=== PATIENT | male | born 1945 | race Caucasian/White ===

== ENCOUNTER 2017-08-31 13:00 | Outpatient (RCR) | payer MEDICARE, BC, SELFPAY ==
--- NOTE | 2017-08-10 13:39 | HP.PTEVAL_ITS ---
Patient's Visit Information ENOC CAMPBELL is a 71 year old M referred to Physical Therapy by Seth CUELLO with a diagnosis of BACK PAIN, SCIATICA. Date of Evaluation: 08/10/17 Physical Therapist: Christina Bonilla Visit Plan Frequency: 2-3x /Week Duration: 4-6 Weeks Plan: AQUATIC THERAPY. POSTURE CORRECTION/STRENGTHENING, INSTRUCTION IN APPROPRIATE BODY MECHANICS AND ACTIVITY MODIFICATIONS. DLS STARTING WITH A NEUTRAL SPINE PROGRESSING ROM TOLERATED. NICOLA LE ROM, STRETCHING AND STRENGTHENING. HEP INSTRUCTION. 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 HASN'T BEEN ABLE TO WORK FOR PAST 7 WEEKS DUE TO THIS. Disability: NO. Present symptoms: LEFT LOW BACK, LEFT HIP, L KNEE AND WHITE PAIN. INTERMITTENT LLE NUMBNESS AND TINGLING. Present since: SOMETIME IN JUNE. Pain Scale: WORST 10/10, LEAST 0/10. Currently: 2/10. Commenced as a result of: NO APPARENT REASON OTHER THAN ON HANDS AND KNEES ON THE FLOOR WITH 3 YEAR OLD GRANDSON ON HIS BACK. Symptoms at onset: LOW BACK. Worse: MEDICINE, STANDING , SOMETIMES WALKING, LYING DOWN IN BED, WORK, GETTING IN/OUT OF CAR, BENDING, REACHING, GETTING THINGS OUT OF THE HEART DOCTOR, LIFTING. Better: HEATING PAD, ICE, HOT SHOWER, SITTING, TENS UNIT. Disturbed sleep: YES. Previous history/ Previous treatment: YEARS AGO SOME LOW BACK ADJUSTMENTS BY CHIROPRACTOR WHEN IN FOR HIS NECK BUT DENIES ANY OTHER SIGNIFICANT HISTORY OF LOW BACK PROBLEMS. NO LOW BACK SURGERY. NO KIARA'S. Coughing/sneezing/straining: NEGATIVE. Gait: INDEP GAIT AT TIMES BUT OTHER TIMES IT IS SO BAD THAT HE HAS TO USE A W/C. HAS USED A CANE TOO. ALSO USES WALKER AT TIME. Difficulty initiating urinatin : NO. Accidents: NO. Unexplained weight loss: NO. Imaging: [facility] LEFT HIP, PELVIC AND KNEE X-RAYS SHOWING DEGENERATIVE CHANGES. CHIROPRACTIC LUMBAR X- RAYS - PATIENT REPORTS CHIROPRACTOR SAID HE HAS ARTHRITIS AND BULGING DISC. PMH : Recent major surgery: OTHER: 5 WEEKS OF CHIROPRACTIC VISITS AND PATIENT DOESN'T THINK HE IS GETTING ANYWHERE. ONE VISIT AT AT [facility] AND IT DIDN'T HELP AND HE WAS SKEPTICAL ABOUT WHAT THEY HAD PLANNED HELPING SO HE DIDN' T GO BACK. TWO VISITS WITH DR. MARIO. ALSO WENT TO ED. PATIENT REPORTS HE WAS GOING TO STAY WITH THE CHIROPRACTOR BUT AFTER HAVING A BAD EXPERIENCE MONDAY (YESTERDAY) THE PAIN GOT BAD AGAIN BUT NOT BAD MONDAY. HE DECIDED RECENTLY TO TRY PT AGAIN. ALSO TRIED SOME INJECTIONS OF SOME SORT AT [facility] FOR 2 WEEKS BUT DIDN'T HELP. - Objective Sitting Posture: POOR. Standing Posture: POOR. Lordosis: REDUCED. Lateral shift: NO. Relevant shift: N/A. Active Correction of posture: NE. Other Observations: INDEP SLOW GAIT INTO PT WITHOUT AD. STATES TODAY IS A PRETTY GOOD DAY SO FAR. Motor deficit: NO EXCEPT HIPS 4/5 AND NO INCREASED PAIN WITH TESTING. Sensory deficit: NO. ROM deficit: TIGHT NICOLA HIP FLEXORS, HS'S AND GASTROC SOLEUS COMPLEX'S. Reflexes: 2/2 NICOLA LE'S. Dural Signs: NEGATIVE NICOLA LE'S. Lumbar mvmt loss: flex - NIL *. ext - INEZ *. R SG - INEZ. L SG - INEZ. FLEX AND EXT ROM TESTING PROVOKE LLE TINGLING AND PAIN. Core strength: POOR. Palpation: NO TENDERNESS. - Goals Goal 1:: DECREASE C/O BACK AND LLE SX'S Goal Time Frame: 4-6 Weeks Goal 2:: IMPROVE PERSONAL CARE, LIFTING, WALKING, SITTING, STANDING, SLEEP, SOCIAL LIFE, TRAVEL AND EMPLOYMENT/HOMEMAKING FUNCTION Goal Time Frame: 4-6 Weeks Goal 3:: INSTRUCT IN PROPHYLAXIS Goal Time Frame: 4-6 Weeks - Rehabilitation Potential Rehabilitation Potential: Fair - Anticipated Interventions Patient/Client Instruction: Educate patient on: Condition, Plan of Care, Risk Factors, Benefits of Fitness Program For the Purpose of:: To improve self management Therapeutic Exercise to Include: Strength training, Body mechanics, Postural training, Flexibilty training, Gait and locomotor training, Dynamic Lumbar Stabilization For the Purpose of:: To improve ability to perform ADL's, To increase tolerance to activity/condition/position, To improve ability of physical actions for home/ community/work/leisure, To improve gait and locomotor functions Thank you for the opportunity to evaluate your patient. For Medicare and Medicare HMO plans, please review the plan of care and approve it. It will need to be FAXED BACK to us at [phone] for Medicare purposes. Please let me know if there are questions or concerns regarding this plan of care. Physician Signature: Date:
--- NOTE | 2017-08-10 13:42 | HP.PTEVAL_ITS ---
Patient's Visit Information ENOC CAMPBELL is a 71 year old M referred to Physical Therapy by Seth CUELLO with a diagnosis of BACK PAIN, SCIATICA. Date of Evaluation: 08/10/17 Physical Therapist: Christina Bonilla Visit Plan Frequency: 2-3x /Week Duration: 4-6 Weeks Plan: AQUATIC THERAPY. POSTURE CORRECTION/STRENGTHENING, INSTRUCTION IN APPROPRIATE BODY MECHANICS AND ACTIVITY MODIFICATIONS. DLS STARTING WITH A NEUTRAL SPINE PROGRESSING ROM TOLERATED. NICOLA LE ROM, STRETCHING AND STRENGTHENING. HEP INSTRUCTION. - Subjective Subjective: Work/Leisure: RETIRED SINCE 1999 BUT [employer] NOW ([employer]PL[employer] WEL[employer]). HASN'T BEEN ABLE TO WORK FOR PAST 7 WEEKS DUE TO THIS. Disability: NO. Present symptoms: LEFT LOW BACK, LEFT HIP, L KNEE AND WHITE PAIN. INTERMITTENT LLE NUMBNESS AND TINGLING. Present since: SOMETIME IN JUNE. Pain Scale: WORST 10/10, LEAST 0/10. Currently: 2/10. Commenced as a result of: NO APPARENT REASON OTHER THAN ON HANDS AND KNEES ON THE FLOOR WITH 3 YEAR OLD GRANDSON ON HIS BACK. Symptoms at onset: LOW BACK. Worse: MEDICINE, STANDING , SOMETIMES WALKING, LYING DOWN IN BED, WORK, GETTING IN/OUT OF CAR, BENDING, REACHING, GETTING THINGS OUT OF THE SKULL GRINDER, LIFTING. Better: HEATING PAD, ICE, HOT SHOWER, SITTING, TENS UNIT. Disturbed sleep: YES. Previous history/ Previous treatment: YEARS AGO SOME LOW BACK ADJUSTMENTS BY CHIROPRACTOR WHEN IN FOR HIS NECK BUT DENIES ANY OTHER SIGNIFICANT HISTORY OF LOW BACK PROBLEMS. NO LOW BACK SURGERY. NO KIARA'S. Coughing/sneezing/straining: NEGATIVE. Gait: INDEP GAIT AT TIMES BUT OTHER TIMES IT IS SO BAD THAT HE HAS TO USE A W/C. HAS USED A CANE TOO. ALSO USES WALKER AT TIME. Difficulty initiating urinatin : NO. Accidents: NO. Unexplained weight loss: NO. Imaging: [facility] LEFT HIP, PELVIC AND KNEE X-RAYS SHOWING DEGENERATIVE CHANGES. CHIROPRACTIC LUMBAR X- RAYS - PATIENT REPORTS CHIROPRACTOR SAID HE HAS ARTHRITIS AND BULGING DISC. PMH : Recent major surgery: OTHER: 5 WEEKS OF CHIROPRACTIC VISITS AND PATIENT DOESN'T THINK HE IS GETTING ANYWHERE. ONE VISIT AT AT [facility] AND IT DIDN'T HELP AND HE WAS SKEPTICAL ABOUT WHAT THEY HAD PLANNED HELPING SO HE DIDN' T GO BACK. TWO VISITS WITH DR. MARIO. ALSO WENT TO ED. PATIENT REPORTS HE WAS GOING TO STAY WITH THE CHIROPRACTOR BUT AFTER HAVING A BAD EXPERIENCE MONDAY (YESTERDAY) THE PAIN GOT BAD AGAIN BUT NOT BAD MONDAY. HE DECIDED RECENTLY TO TRY PT AGAIN. ALSO TRIED SOME INJECTIONS OF SOME SORT AT [facility] FOR 2 WEEKS BUT DIDN'T HELP. - Objective Sitting Posture: POOR. Standing Posture: POOR. Lordosis: REDUCED. Lateral shift: NO. Relevant shift: N/A. Active Correction of posture: NE. Other Observations: INDEP SLOW GAIT INTO PT WITHOUT AD. STATES TODAY IS A PRETTY GOOD DAY SO FAR. Motor deficit: NO EXCEPT HIPS 4/5 AND NO INCREASED PAIN WITH TESTING. Sensory deficit: NO. ROM deficit: TIGHT NICOLA HIP FLEXORS, HS'S AND GASTROC SOLEUS COMPLEX'S. Reflexes: 2/2 NICOLA LE'S. Dural Signs: NEGATIVE NICOLA LE'S. Lumbar mvmt loss: flex - NIL *. ext - INEZ *. R SG - INEZ. L SG - INEZ. FLEX AND EXT ROM TESTING PROVOKE LLE TINGLING AND PAIN. Core strength: POOR. Palpation: NO TENDERNESS. - Goals Goal 1:: DECREASE C/O BACK AND LLE SX'S Goal Time Frame: 4-6 Weeks Goal 2:: IMPROVE PERSONAL CARE, LIFTING, WALKING, SITTING, STANDING, SLEEP, SOCIAL LIFE, TRAVEL AND EMPLOYMENT/HOMEMAKING FUNCTION Goal Time Frame: 4-6 Weeks Goal 3:: INSTRUCT IN PROPHYLAXIS Goal Time Frame: 4-6 Weeks - Rehabilitation Potential Rehabilitation Potential: Fair - Anticipated Interventions Patient/Client Instruction: Educate patient on: Condition, Plan of Care, Risk Factors, Benefits of Fitness Program For the Purpose of:: To improve self management Therapeutic Exercise to Include: Strength training, Body mechanics, Postural training, Flexibilty training, Gait and locomotor training, Dynamic Lumbar Stabilization For the Purpose of:: To improve ability to perform ADL's, To increase tolerance to activity/condition/position, To improve ability of physical actions for home/ community/work/leisure, To improve gait and locomotor functions Thank you for the opportunity to evaluate your patient. For Medicare and Medicare HMO plans, please review the plan of care and approve it. It will need to be FAXED BACK to us at [phone] for Medicare purposes. Please let me know if there are questions or concerns regarding this plan of care. Physician Signature: Date:
--- NOTE | 2017-08-31 13:57 | HP.PTDCSUM_ITS ---
HP - PT D/C Summary It has been my pleasure to treat ENOC CAMPBELL under orders from Seth Mario, for the diagnosis of BACK PAIN, SCIATICA for a total of 10 visit(s). Discharge Date: Please see the following information for a summary of their discharge status. - Subjective Subjective: PATIENT REPORTS HE GETS TEMPORARY RELIEF ONLY DURING AND AFTER AQUATIC THERAPY. OVER-ALL, HE REPORTS HE IS NO BETTER. CURRENTLY, LEFT LOW BACK , LEFT HIP, L KNEE AND WHITE PAIN. INTERMITTENT LLE NUMBNESS AND TINGLING. Pain Scale: WORST 10/10, LEAST 0/10. Currently: 0/10. PATIENT REPORTS DR. MARIO GAVE HIM THE CHOICE OF GOING TO THE CHIROPRACTOR, PT, MRI OR SURGEON. STATES HE CAN NOT TOLERATE AN MRI. STATES HE DOESN'T KNOW WHAT TYPE OF SURGEON DR. MARIO WAS REFERRING TO. PATIENT TRIES TO CLARIFY THAT HE FEELS GOOD DURING AND RIGHT AFTER AQUATIC THERAPY BUT THAT NIGHT HE SEEMS TO BE WORSE. HE RE-STATES THAT OVER-ALL HE THINKS HE IS A LITTLE BETTER AND HE REALLY DOESN'T KNOW IF WATER PT IS HELPING OR NOT. HE STILL CAN'T STAND TO DO HAIR AND THAT IS WHAT HAS HIM MOST CONCERNED. - Pain LBP Pain Intensity (Out of 10): 0 LLE Pain Intensity (Out of 10): 2 - Objective Objective/Function: GOALS NOT BEING MET. UPON EXAM: Lumbar mvmt loss: flex - NIL. ext - INEZ *. R SG - INEZ. L SG - INEZ. EXT ROM TESTING PROVOKE LLE TINGLING AND PAIN. Core strength: POOR. Palpation: NO TENDERNESS WITH PALPATION OF BACK, LEFT HIP OR LEFT LEG. - Goals Goal 1:: DECREASE C/O BACK AND LLE SX'S Goal Progress: Not Progressing Goal 2:: IMPROVE PERSONAL CARE, LIFTING, WALKING, SITTING, STANDING, SLEEP, SOCIAL LIFE, TRAVEL AND EMPLOYMENT/HOMEMAKING FUNCTION Goal Progress: Not Progressing Goal 3:: INSTRUCT IN PROPHYLAXIS Goal Progress: Not Progressing - Plan Plan: PATIENT IS NO WORSE SINCE STARTING THIS EPISODE OF CARE WITH PT BUT NOT SIGNIFICANTLY BETTER. REFERRED BACK TO DR. MARIO DUE TO LACK OF PROGRESS. D/C. PATIENT STATES HE IS GOING TO A HIP AND KNEE SPECIALIST AT [facility] TOMORROW UPON HIS OWN ACCORD. RECOMMEND LUMBAR TESTING AND CONSULT. - D/C Information If there are questions or concerns regarding this patient's physical therapy, please feel free to call me at [phone]. Thank you for the referral of this patient. Sincerely, Christina Street
== END 2017-08-31 19:00 | disposition home or self-care (01) ==
LOC: PT 13:00
PROVIDERS: Family Provider Family Medicine; PCP Family Medicine; Visit Provider Family Medicine
DX: M54.32 Sciatica, left side (principal)
CPT/HCPCS: 97113; 97162; 97530

== ENCOUNTER 2017-09-07 10:04 | Observation (INO) | payer MEDICARE, BC, SELFPAY ==
[2017-09-07] VITALS (9 sets, daily range): BP systolic 122–160; BP diastolic 67–78; PULSE 51–87; RESP 16–19; TEMP 36.4–36.6; O2SAT 95–98; BMI 38.2; BMI 26.7; BMI 26.8
--- NOTE | 2017-09-07 10:24 | RAD_ITS ---
STUDY: X-RAY CHEST REASON FOR EXAM: Male, 71 years old. Left lower extremity and abdominal pain. TECHNIQUE: Single AP portable view of the chest. COMPARISON: Comparison is made with prior study dated February 21, 2016. FINDINGS: Mild elevation of the right hemidiaphragm. Scattered calcified granulomas. There is no demonstrated pleural abnormality. There is mild cardiac enlargement. Normal mediastinum and perlita. Normal visualized pulmonary arteries. There is atherosclerotic tortuosity of the aortic arch and descending thoracic aorta. There are diffuse degenerative changes of the visualized thoracic spine. Normal visualized ribs, clavicles, and shoulders. There is no demonstrated abnormality of the visualized soft tissue structures of the upper abdomen. RAD/Chest 1 View (Portable) IMPRESSION: Mild cardiomegaly. The lungs are clear. Electronically Signed: Asaf Finney MD at 10:54 EST Tel [phone], Service support ,
--- NOTE | 2017-09-07 10:24 | EKG12_ITS ---
Test Reason : Blood Pressure : / mmHG Vent. Rate : 050 BPM Atrial Rate : 050 BPM P-R Int : 134 ms QRS Dur : 096 ms QT Int : 416 ms P-R-T Axes : 005 -18 -10 degrees QTc Int : 379 ms Sinus bradycardia Nonspecific T wave abnormality Abnormal ECG Confirmed by JAVI MUNIZ ([id number]), commercial production editor VIANCA HARRELL ([id number] on 09/12/2017 1:47:02 PM Referred By: EDVIN Confirmed By:JAVI MUNIZ
--- NOTE | 2017-09-07 10:24 | CT_ITS ---
STUDY: CT ABDOMEN AND PELVIS WITHOUT CONTRAST REASON FOR EXAM: Male, 71 years old. Severe abdomen pain earlier today, resolved now. Prior cholecystectomy.. RADIATION DOSAGE (If Supplied By Facility): CTDIvol = ( 21.88 ) mGy, DLP = ( 1191.77 ) mGycm TECHNIQUE: Transaxial images were obtained from the dome of the diaphragm to the symphysis pubis without oral contrast, and without intravenous contrast. Sagittal and coronal images were reconstructed. Individualized dose optimization techniques were used for this CT. COMPARISON: None. FINDINGS: The visualized lung bases are unremarkable. The visualized portions of the heart are within normal limits. Normal liver. There are surgical clips in the gallbladder fossa consistent with a prior cholecystectomy. Normal spleen. Normal pancreas. Normal bilateral adrenal glands. Normal right kidney. Normal left kidney. Normal visualized stomach. Normal small intestine. There are multiple colonic diverticula consistent with diverticulosis. The appendix is visualized and appears normal. There is diffuse atherosclerotic calcification of the abdominal aorta, without a demonstrated aneurysm. Normal inferior vena cava. Normal retroperitoneum. Normal urinary bladder. Normal abdominal wall. There are diffuse degenerative changes of the visualized lumbar spine. CT/Abdomen/Pelvis without Cont IMPRESSION: No acute intra-abdominal or intrapelvic abnormality. Diverticulosis. Moderate aortoiliac atherosclerotic. Electronically Signed: Saqib Orozco MD at 11:29 EST Tel , Service support ,
[2017-09-07] MEDS: 0.9% Normal Saline 1,000 ML 150 ML IV (10:46)
[2017-09-07 11:01] LABS: Absolute Lymphocyte Count 1.82 X10^3/ul (0.83-4.51); Absolute Neutrophil Count 3.6 X10^3/uL (2.0-7.7); Basophil# 0.04 X10^3/uL; Basophil% 0.6 % (0-1); Eosinophil# 0.56 X10^3/uL; Eosinophils% 8.4 % (0-5); Hemoglobin 13.9 g/dl (13.0-16.5); Lymphocyte # 1.82 X10^3/ul (4.0); Lymphocyte % 27.3 % (19-41); Mean Corp Hgb Conc 33.9 g/gl (32-36); Mean Corpuscular Hgb 31.4 pg (27.0-32.0); Mean Corpuscular Volume 92.6 fL (80-94); Mean Platelet Vol. 9.7 fl (6.2-12.0); Monocyte# 0.58 X10^3/uL; Monocyte% 8.7 % (0-10); Neutrophil # 3.61 X10^3/uL (2.7-7.7); Neutrophil % 54.1 % (47-70); Platelet Count 167 K/mm3 (150-450); RBC Distribution Width CV 12.4 % (11.6-14.6); RBC Distribution Width SD 41.2 fl (35.1-43.9); Red Blood Count 4.43 M/mm3 (4.6-6.2); White Blood Count 6.7 K/mm3 (4.4-11.0)
[2017-09-07 11:17] LABS: Anion Gap 6 (5-15); BUN 18 mg/dL (7-18); BUN/Creat Ratio 17.3 RATIO (10-20); Calcium,Total 8.5 mg/dL (8.5-10.1); Chloride 102 mmol/L (98-107); Creatinine, Serum 1.04 mg/dL (0.70-1.30); EST Glomerular Filtration Rate 75 mL/min (>60); Est Glom Filt Rate - Afr Amer 91 mL/min (>60); Estimated Creatinine Clearance 63.94 ml/min; Glucose 170 mg/dL (74-106); Lipase 215 U/L (73-393); Potassium 3.8 mmol/L (3.5-5.1); Sodium Level 137 mmol/L (136-145)
[2017-09-07 11:19] LABS: Bacteria 0 SEEN /hpf (None Seen); Mucous, Urine 0 SEEN /hpf (<or=2+); Squamous Epithelial Cells - UA 0 SEEN /hpf (0-5); White Blood Cells 0 SEEN /hpf (0-5)
[2017-09-07 11:24] LABS: Color, Urine Yellow (Yellow); Glucose, Dipstick Normal (Normal); Ketone-Dipstick Negative (Negative); Leukocyte Esterase-Dipstick Negative /ul (Negative); Nitrite-Dipstick Negative (Negative); Occult Blood-Urine Negative /ul (Negative); Protein-Dipstick Negative (Negative); Urine Bilirubin Dipstick Negative (Negative); Urine Clarity Clear (Clear); Urine Urobilinogen Normal (Normal)
[2017-09-07 11:34] LABS: Red Blood Cells-Urine 0-5 SEEN /hpf (0-5)
--- NOTE | 2017-09-07 11:51 | ED.DCSUM_ITS ---
- ER Visit Summary Date of Service: 09/07/17 Chief Complaint: [Chest/abdomen pain] History of Present Illness: The patient is a 71 M [presents to the emergency department with complaint of chest and abdomen pain that started this morning after eating breakfast around 915. Patient had sudden onset of discomfort in the upper abdomen and into his chest. Patient felt nauseated and became extremely diaphoretic to where he soaked his shirt. Patient felt short of breath with it. Weldon nauseated. Patient also relates a history of intermittent chest discomfort over the last week. He has had discomfort in his left chest that seems to be positional when laying on his left side and try to sleep. That pain will last a minute or so. Patient denies any recent travel or surgery. Patient has a history of cardiac ablation. Patient's gallbladder has been resected. Patient called Dr. Manriquez's office last week regarding his chest discomfort however he was told that Dr. Manriquez would be out of the office for vacation therefore did not make an appointment.] Physical Examination: [HEENT-PERRLA, EOMI. Cranial nerves II through XII grossly intact. TMs clear. Mucous membranes moist. No adenopathy. Cardiovascular-regular rate and rhythm without murmur or ectopy Lungs-clear to auscultation, chest wall stable without crepitus or subcu emphysema Abdomen-normoactive bowel sounds, soft, nontender, no rebound or rigidity, no peritoneal signs. Extremities-intact ?4, normal range of motion, normal pulses, atraumatic] Test Results: [EKG obtained on arrival shows sinus bradycardia with a ventricular rate of 50 bpm with some nonspecific ST changes noted. When compared with prior EKG no significant changes noted. Prior EKG was from February 21, 2016. CBC with differential was unremarkable. Chemistries unremarkable. Lipase was 215. Urinalysis was normal. Troponin was less than 0.02. Chest x-ray showed cardiomegaly otherwise nothing acute. CT scan of the abdomen and pelvis showed nothing acute.] Emergency Department Course and Treatment: [Patient was given aspirin in the emergency department.] Treatment Plan: [Admit for further workup and evaluation of his chest pain.] Disposition: [Admit] Impression: [Chest pain-rule out acute coronary syndrome] This note was generated with [employer] software. It may contain incorrect words, spelling, and punctuation that were not noted in review of the chart prior to signing ED Disposition - Plan for ED Patient: Chief Complaint: Lower Extremity Injury Referrals: Seth Tobar [Primary Care Provider] -
--- NOTE | 2017-09-07 13:43 | ED.RN ---
care assumed by tor Morris nurse.
--- NOTE | 2017-09-07 13:43 | ED.RN ---
1300, care assumed by tor Morris rn.
[2017-09-07] MEDS: Gabapentin 100 MG Capsule PO ×2 (16:14→23:57)
[2017-09-07] MEDS: HYDROcodone Bitartrate/Apap 5/325 Tablet PO ×2 (16:15→20:51)
--- NOTE | 2017-09-07 16:54 | PCM.HP.STD ---
Problem List (1) Abdominal pain Status: Acute (2) Chest pain Status: Acute (3) Hyperlipidemia Status: Chronic (4) Left leg pain Status: Chronic History of Present Illness Date of Admission: 09/07/17 Chief Complaint: abdominal pain The patient is a 71 year old M developed epigastric abdominal pain today. Was diaphoretic with it. Last 3-5 minutes. No N/V/D. Presented to ED and had a CT that was negative as well as lab work that was negative. Pt complains of chest pain. The chest pain has been going on for months and is a pressure-like small area on left chest that occurs when he lies on his right side only. He does not have chest pain at other times. Pt has left leg pain from knee to ankle that started 07/14/17. No bowel or bladder incontinence. Was to have an MRI tomorrow.[] Past Medical History Past Medical History (Chronic Problems): Chronic Problems Hyperlipidemia (Chronic) Left leg pain (Chronic) Allergies diazepam [From Valium] Adverse Reaction (Verified 09/07/17 14:23) ACTING GOOFY Home Medications: Ambulatory Orders Medication Instructions Recorded [place]-3 Acid Ethyl Esters [Lovaza] 1 capsule PO BID 02/21/16 Rosuvastatin Calcium [Crestor] 20 mg PO QHS 02/21/16 Aspirin [Aspirin, Baby] 81 mg PO QHS 09/07/17 Gabapentin [Neurontin] 100 mg PO TID 09/07/17 Hydrocodone Bitart/Apap 5-325 1 tablet PO Q4H PRN PRN 09/07/17 [[place] 5/325] Surgical History: - - cardiac ablation for tachycardia Psychiatric History: No pertinent psych hx Lives: Spouse/ Significant Other Smoking Status: Former smoker Tobacco Use: Non-smoker Alcohol: Rare - *Family History Maternal History Items: - - No heart disease Review of Systems Constitutional: Denies: Chills, Fever, Weight Change Eyes: Denies: Blurred vision, Double vision HEENT: Denies: Head Aches, Sinus Congestion, Sinus Drainage Cardiovascular: Reports: Chest Pain. Denies: Palpitations Respiratory: Denies: Cough, Shortness of breath at rest, Sputum production Gastrointestinal: Denies: Abdominal Pain, Nausea, Vomiting Genitourinary: Denies: Dysuria Musculoskeletal: Denies: Joint Pain, Joint Tenderness Skin: Denies: Rash, Wounds Neurological: Denies: Numbness, Tingling, Focal weakness Psychiatric: Denies: Anxiety, Depression, Homicidal Ideations, Suicidal Ideations Hematologic/ Lymphatic: Denies: Easy Bruising, Easy Bleeding, Hx of blood clot VTE Information - Inpt Only VTE Present on Admission: No VTE Pharm Prophylaxis ordered?: Yes Patient Problems: Active and Suspected Problems Abdominal pain (Acute) Chest pain (Acute) - Physical Exam General: Alert, No apparent distress, Well developed, Well nourished HEENT: Atraumatic, Normocephalic Neck: No Nodes, Thyroid Normal Size and Texture Lungs: Clear to auscultation, Normal air movement, No rhonchi, No wheeze Cardiovascular: Regular rate, Regular Rhythm, Normal S1, Normal S2 Abdomen: Bowel Sounds Present, Soft, Non Tender, Non-Distended Extremities: No edema, No Calf Tenderness Skin: No rashes, No breakdown Musculoskeletal: No Tenderness to Palpation of Joints or Extremities Psych/Mental Status: Normal Affect, Appropriate Vital Signs Temp Pulse Resp BP Pulse Ox 36.6 C 75 18 160/68 H 97 09/07/17 15:07 09/07/17 15:18 09/07/17 15:07 09/07/17 15:07 09/07/17 15:07 Oxygen Delivery Method Room Air Weight: 110.6 kg Body Mass Index (BMI) 26.7 Laboratory Tests Past 24 Hrs 09/07/17 15:12 Troponin I < 0.02 Clinical Impression(s) from Imaging Studies Abdomen/Pelvis CT 09/07/17 10:24 IMPRESSION: No acute intra-abdominal or intrapelvic abnormality. Diverticulosis. Moderate aortoiliac atherosclerotic. Electronically Signed: Saqib Orozco MD at 11:29 EST Tel , Service support , Chest X-Ray 09/07/17 10:24 IMPRESSION: Mild cardiomegaly. The lungs are clear. Electronically Signed: Asaf Finney MD at 10:54 EST Tel [phone], Service support , Assessment/Plan Active and Suspected Problems Abdominal pain (Acute) Chest pain (Acute) 1. Abdominal pain Resolved. Unclear etiology but may have been transient small bowel obstruction. 2. Chest pain Atypical Patient and family giving varying stories in regards to the patient's chest pain. After long conversation with the patient and his family who state that he has chest pain shortness of breath often just going to proceed with patient having a stress test done here. 3. Left leg pain Present since July 14 Concern for radicular No bowel or bladder incontinence Patient to have an outpatient MRI Code Visit OBSV E&M: 76132 Initial observation care L2
--- NOTE | 2017-09-07 17:07 | HP.PCM_ITS ---
Problem List (1) Abdominal pain Status: Acute (2) Chest pain Status: Acute (3) Hyperlipidemia Status: Chronic (4) Left leg pain Status: Chronic History of Present Illness Date of Admission: 09/07/17 Chief Complaint: abdominal pain The patient is a 71 year old M developed epigastric abdominal pain today. Was diaphoretic with it. Last 3-5 minutes. No N/V/D. Presented to ED and had a CT that was negative as well as lab work that was negative. Pt complains of chest pain. The chest pain has been going on for months and is a pressure-like small area on left chest that occurs when he lies on his right side only. He does not have chest pain at other times. Pt has left leg pain from knee to ankle that started 07/14/17. No bowel or bladder incontinence. Was to have an MRI tomorrow. [] Past Medical History Past Medical History (Chronic Problems): Chronic Problems Hyperlipidemia (Chronic) Left leg pain (Chronic) Allergies diazepam [From Valium] Adverse Reaction (Verified 09/07/17 14:23) ACTING GOOFY Home Medications: Ambulatory Orders Medication Instructions Recorded [place]-3 Acid Ethyl Esters [Lovaza] 1 capsule PO BID 02/21/16 Rosuvastatin Calcium [Crestor] 20 mg PO QHS 02/21/16 Aspirin [Aspirin, Baby] 81 mg PO QHS 09/07/17 Gabapentin [Neurontin] 100 mg PO TID 09/07/17 Hydrocodone Bitart/Apap 5-325 1 tablet PO Q4H PRN PRN 09/07/17 [[place] 5/325] Surgical History: - - cardiac ablation for tachycardia Psychiatric History: No pertinent psych hx Lives: Spouse/ Significant Other Smoking Status: Former smoker Tobacco Use: Non-smoker Alcohol: Rare - *Family History Maternal History Items: - - No heart disease Review of Systems Constitutional: Denies: Chills, Fever, Weight Change Eyes: Denies: Blurred vision, Double vision HEENT: Denies: Head Aches, Sinus Congestion, Sinus Drainage Cardiovascular: Reports: Chest Pain. Denies: Palpitations Respiratory: Denies: Cough, Shortness of breath at rest, Sputum production Gastrointestinal: Denies: Abdominal Pain, Nausea, Vomiting Genitourinary: Denies: Dysuria Musculoskeletal: Denies: Joint Pain, Joint Tenderness Skin: Denies: Rash, Wounds Neurological: Denies: Numbness, Tingling, Focal weakness Psychiatric: Denies: Anxiety, Depression, Homicidal Ideations, Suicidal Ideations Hematologic/ Lymphatic: Denies: Easy Bruising, Easy Bleeding, Hx of blood clot VTE Information - Inpt Only VTE Present on Admission: No VTE Pharm Prophylaxis ordered?: Yes Patient Problems: Active and Suspected Problems Abdominal pain (Acute) Chest pain (Acute) - Physical Exam General: Alert, No apparent distress, Well developed, Well nourished HEENT: Atraumatic, Normocephalic Neck: No Nodes, Thyroid Normal Size and Texture Lungs: Clear to auscultation, Normal air movement, No rhonchi, No wheeze Cardiovascular: Regular rate, Regular Rhythm, Normal S1, Normal S2 Abdomen: Bowel Sounds Present, Soft, Non Tender, Non-Distended Extremities: No edema, No Calf Tenderness Skin: No rashes, No breakdown Musculoskeletal: No Tenderness to Palpation of Joints or Extremities Psych/Mental Status: Normal Affect, Appropriate Vital Signs Temp Pulse Resp BP Pulse Ox 36.6 C 75 18 160/68 H 97 09/07/17 15:07 09/07/17 15:18 09/07/17 15:07 09/07/17 15:07 09/07/17 15:07 Oxygen Delivery Method Room Air Weight: 110.6 kg Body Mass Index (BMI) 26.7 Laboratory Tests Past 24 Hrs 09/07/17 15:12 Troponin I < 0.02 Clinical Impression(s) from Imaging Studies Abdomen/Pelvis CT 09/07/17 10:24 IMPRESSION: No acute intra-abdominal or intrapelvic abnormality. Diverticulosis. Moderate aortoiliac atherosclerotic. Electronically Signed: Saqib Orozco MD at 11:29 EST Tel , Service support , Chest X-Ray 09/07/17 10:24 IMPRESSION: Mild cardiomegaly. The lungs are clear. Electronically Signed: Asaf Finney MD at 10:54 EST Tel [phone], Service support , Assessment/Plan Active and Suspected Problems Abdominal pain (Acute) Chest pain (Acute) 1. Abdominal pain * Resolved. Unclear etiology but may have been transient small bowel obstruction. 2. Chest pain * Atypical * Patient and family giving varying stories in regards to the patient's chest pain. After long conversation with the patient and his family who state that he has chest pain shortness of breath often just going to proceed with patient having a stress test done here. 3. Left leg pain * Present since July 14 * Concern for radicular * No bowel or bladder incontinence * Patient to have an outpatient MRI Code Visit OBSV E&M: 13565 Initial observation care L2
[2017-09-07] MEDS: Aspirin E.C. 81 MG Tablet PO (18:08)
[2017-09-08 01:00] VITALS: BP 119/61; PULSE 55; RESP 16; TEMP 36.7; O2SAT 97
[2017-09-08] MEDS: HYDROcodone Bitartrate/Apap 5/325 Tablet PO ×3 (01:08→09:48)
[2017-09-08 02:54] VITALS: PULSE 54
[2017-09-08 05:37] LABS: Absolute Lymphocyte Count 2.55 X10^3/ul (0.83-4.51); Absolute Neutrophil Count 4.3 X10^3/uL (2.0-7.7); Basophil# 0.02 X10^3/uL; Basophil% 0.2 % (0-1); Eosinophil# 0.76 X10^3/uL; Eosinophils% 8.9 % (0-5); Hematocrit 39.8 % (40-54); Hemoglobin 13.8 g/dl (13.0-16.5); Lymphocyte # 2.55 X10^3/ul (4.0); Lymphocyte % 29.8 % (19-41); Mean Corp Hgb Conc 34.7 g/gl (32-36); Mean Corpuscular Hgb 32.1 pg (27.0-32.0); Mean Corpuscular Volume 92.6 fL (80-94); Mean Platelet Vol. 9.8 fl (6.2-12.0); Monocyte% 10.5 % (0-10); Neutrophil % 50.1 % (47-70); Platelet Count 168 K/mm3 (150-450); RBC Distribution Width CV 12.4 % (11.6-14.6); RBC Distribution Width SD 41.1 fl (35.1-43.9); White Blood Count 8.6 K/mm3 (4.4-11.0)
[2017-09-08 05:40] LABS: POSITIVE COUNT NO; POSITIVE DIFFERENTIAL NO; POSITIVE MORPHOLOGY NO
[2017-09-08 05:42] VITALS: BP 130/80; PULSE 63; RESP 18; TEMP 36.6; O2SAT 95
[2017-09-08 05:43] LABS: Partial Thromboplast Time 29.4 Seconds (24.1-36.2)
[2017-09-08] MEDS: Gabapentin 100 MG Capsule PO (05:44)
[2017-09-08 05:54] LABS: Anion Gap 6 (5-15); BUN 15 mg/dL (7-18); BUN/Creat Ratio 16.1 RATIO (10-20); Calcium,Total 8.8 mg/dL (8.5-10.1); Chloride 102 mmol/L (98-107); Creatinine, Serum 0.93 mg/dL (0.70-1.30); EST Glomerular Filtration Rate 85 mL/min (>60); Est Glom Filt Rate - Afr Amer 103 mL/min (>60); Estimated Creatinine Clearance 100.36 ml/min; Glucose 123 mg/dL (74-106); Potassium 4.6 mmol/L (3.5-5.1); Sodium Level 139 mmol/L (136-145)
--- NOTE | 2017-09-08 05:55 | EKG12_ITS ---
Test Reason : AM EKG Blood Pressure : / mmHG Vent. Rate : 055 BPM Atrial Rate : 055 BPM P-R Int : 132 ms QRS Dur : 092 ms QT Int : 404 ms P-R-T Axes : -08 -17 -06 degrees QTc Int : 386 ms Sinus bradycardia Otherwise normal ECG When compared with ECG of 07-SEP-2017 10:33, MANUAL COMPARISON REQUIRED, DATA IS UNCONFIRMED Confirmed by KAREN MARIE, JHON ([id number]), make up editor VIANCA HARRELL ([id number]) on 09/20/2017 1:24:43 PM Referred By: Seth Tobar Confirmed By:JHON JONES MD
[2017-09-08 09:02] VITALS: PULSE 66
[2017-09-08] MEDS: Aspirin E.C. 81 MG Tablet PO (09:48)
--- NOTE | 2017-09-08 09:50 | STRESSREP_ITS ---
Stress Test Report Date: 09/08/2017 Procedure: Pharmacologic stress nuclear imaging study Indications: Chest pain Consent: Per the patient Procedure: The patient underwent pharmacologic (Regadenoson) evaluation with a peak heart rate of 96 per minute and a peak blood pressure of 150/68 mmHg. The baseline ECG demonstrated sinus bradycardia. The peak pharmacologic ECG demonstrated no obvious ECG changes. There were no cardiac dysrhythmias pretest, during pharmacologic infusion, or recovery. There was no complaint of chest discomfort during pharmacologic infusion or recovery. The examination was discontinued secondary to completion of protocol. Impression: 1. Pharmacologic (Regadenoson) evaluation 2. Peak pharmacologic ECG with no obvious ECG changes. 3. No cardiac dysrhythmias pretest, during pharmacologic infusion, or recovery 4. Nuclear images pending Myocardial perfusion imaging study: Technique: The patient was injected with 14.8 millicuries of technetium 99m Cardiolite and subsequently rest SPECT Cardiolite nuclear imaging was obtained in the horizontal long, vertical long, and short axis views. The patient underwent pharmacologic (Regadenoson) evaluation with a peak heart rate of 96 per minute and a peak blood pressure of 150/68 mmHg. the patient was injected with 44.6 millicuries of technetium 99m Cardiolite and subsequently stress SPECT Cardiolite nuclear imaging was obtained in the horizontal long, vertical long, and short axis views. A gated Cardiolite study at peak stress was obtained. Interpretation: Rest and stress SPECT Cardiolite nuclear imaging status post realignment, normalization, and attenuation correction demonstrate relative uniform tracer uptake and myocardial perfusion appearing within normal limits. There is end systolic thickening and brightening. The gated Cardiolite study demonstrates myocardial thickening and inward wall motion. The reported LVEF is 63%. Impression: 1. Rest and stress SPECT Cardiolite nuclear imaging demonstrates relative uniform tracer uptake and myocardial perfusion appearing within normal limits. 2. The gated Cardiolite study reports an LVEF of 63% This note was generated with [employer] software. It may contain incorrect words, spelling, and punctuation that were not noted in checking the note before signing.
[2017-09-08 10:22] VITALS: BP 133/75; PULSE 65; RESP 16; TEMP 36.6; O2SAT 98
[2017-09-08 11:05] VITALS: PULSE 58
--- NOTE | 2017-09-08 11:25 | PN_ITS ---
Patient Problems: Active and Suspected Problems Abdominal pain (Acute) Chest pain (Acute) Subjective: No events overnight. No chest pain no abdominal pain. Vitals/I&O's: Vital Signs Temp Pulse Resp BP Pulse Ox 36.6 C 65 16 133/75 H 98 09/08/17 10:22 09/08/17 10:22 09/08/17 10:22 09/08/17 10:22 09/08/17 10:22 Oxygen Delivery Method Room Air Weight: 110.6 kg Body Mass Index (BMI) 26.7 Intake and Output for Last 24 Hours 09/06/17 09/07/17 09/08/17 23:59 23:59 23:59 Intake Total 600 / 600 Balance 600 / 600 General: Alert, Cooperative, No apparent distress HEENT: Atraumatic, Normocephalic Neck: No Nodes, Thyroid Normal Size and Texture Lungs: Clear to auscultation, Normal air movement, No rhonchi, No wheeze Cardiovascular: Regular rate, Regular Rhythm, Normal S1, Normal S2, No murmurs Abdomen: Bowel Sounds Present, Soft, Non Tender, Non-Distended, No Hepato- splenomegaly Laboratory Results 09/07/17 15:12: Troponin I < 0.02 09/07/17 17:29: Troponin I < 0.02 09/08/17 05:10: WBC 8.6, RBC 4.30 L, Hgb 13.8, Hct 39.8 L, MCV 92.6, MCH 32.1 H , MCHC 34.7, RDW 12.4, RDW Differential 41.1, Plt Count 168, MPV 9.8, Immature Gran % (Auto) 0.500, Neut % (Auto) 50.1, Lymph % (Auto) 29.8, [place] % (Auto) 10.5 H, Eos % (Auto) 8.9 H, Baso % (Auto) 0.2, Absolute Neuts (auto) 4.3, Absolute Lymphs (auto) 2.55, Total Counted Not Reportable 09/08/17 05:10: PT 13.0, INR 1.0, APTT 29.4 09/08/17 05:10: Sodium 139, Potassium 4.6, Chloride 102, Carbon Dioxide 31.0, Anion Gap 6, BUN 15, Creatinine 0.93, Estim Creat Clear Calc 100.36, Est GFR ( MDRD) Af Amer 103, Est GFR (MDRD) Non-Af 85, BUN/Creatinine Ratio 16.1, Glucose 123 H, Calcium 8.8 Current Medications Hydrocodone Bitart/Acetaminophen ([place] 5mg-325mg) 1 tablet PO Q4H PRN PRN PRN Reason: SEVERE PAIN (6-10/10) Last Admin: 09/08/17 09:48 Dose: 1 tablet Aspirin (Ecotrin) 81 mg PO DAILY@0800 [facility] Last Admin: 09/08/17 09:48 Dose: 81 mg Atorvastatin Calcium (Lipitor) 40 mg PO QHS [facility] Last Admin: 09/07/17 20:51 Dose: Not Given Enoxaparin Sodium (Lovenox) 40 mg SC DAILY@1000 [facility] Last Admin: 09/08/17 09:48 Dose: Not Given Gabapentin (Neurontin) 100 mg PO TID@0000,0800,1600 [facility] Last Admin: 09/08/17 05:44 Dose: 100 mg Magnesium Hydroxide (Milk Of Magnesia) 30 ml PO DAILY PRN PRN PRN Reason: Constipation Nitroglycerin (Nitrostat) 0.4 mg SUBLINGUAL Q5M PRN PRN Reason: CHEST PAIN Ondansetron HCl (Zofran) 4 mg IV Q6H PRN PRN PRN Reason: NAUSEA Sodium Chloride () 5 - 30 ml IV UD PRN PRN Reason: SALINE FLUSH Assessment/Plan Active and Suspected Problems Abdominal pain (Acute) Chest pain (Acute) 1. Abdominal pain * Resolved. Unclear etiology but may have been transient small bowel obstruction. 2. Chest pain * Atypical * Patient and family giving varying stories in regards to the patient's chest pain. After long conversation with the patient and his family who state that he has chest pain shortness of breath often just going to proceed with patient having a stress test done here. * Stress test negative. 3. Left leg pain * Present since July 14 * Concern for radicular * No bowel or bladder incontinence * Patient to have an outpatient MRI
--- NOTE | 2017-09-08 11:26 | DCINST_ITS ---
- Discharge Diagnoses Current Active Problems: Current Active and Chronic Problems Abdominal pain (Acute) Chest pain (Acute) Hyperlipidemia (Chronic) Left leg pain (Chronic) You will use the following diet at home:: No restrictions Your food should be the consistency of: Regular Your liquids should be the consistency of: Regular/Thin Discharge Activity: Return to Normal Activity Call your doctor if you observe: Chest pain, - - worsening abdominal pain. bowel or bladder incontinence. Instructions: ED Chest Pain NonCardiac Allergies/Adverse Reactions: Allergies diazepam [From Valium] Adverse Reaction (Verified 09/07/17 14:23) ACTING GOOFY Medications to take at Discharge [place]-3 Acid Ethyl Esters [Lovaza] 1 capsule PO BID 02/21/16 Rosuvastatin Calcium [Crestor] 20 mg PO QHS 02/21/16 Aspirin [Aspirin, Baby] 81 mg PO QHS 09/07/17 Gabapentin [Neurontin] 100 mg PO TID 09/07/17 Hydrocodone Bitart/Apap 5-325 [[place] 5/325] 1 tablet PO Q4H PRN PRN 09/07/17 Primary Care Physician: Seth Tobar [Primary Care Provider] - Within 2 Weeks Proposed Discharge Date: 09/08/17
--- NOTE | 2017-09-08 11:29 | DS.PCM_ITS ---
Discharge Date and Diagnosis - Problem List Patient Problems: Active and Suspected Problems Abdominal pain (Acute) Chest pain (Acute) Date of Admission: 09/07/17 Date of Discharge: 09/08/17 - Primary Discharge Diagnosis Active and Suspected Problems Abdominal pain (Acute) Chest pain (Acute) - Secondary Discharge Diagnosis Chronic Problems Hyperlipidemia (Chronic) Left leg pain (Chronic) Hospital Course and Treatment Imaging Results: 09/08/17 05:55 Nuclear Stress Test - Chemical [NM] AM (NON MEDS) Procedures: Stress test Summary of Care Provided: The patient is a 71 year old Mitzi Rivers with abdominal pain that had associated diaphoresis. Lasted 3-4 minutes. Patient appeared pale. Patient adamantly denied any chest pain though his family stated that he was having chest pain so given discrepancy in his story and given how ill the patient was elected to proceed with a stress test while he was here just to rule out a chest pain equivalent. Stress test was performed and was negative. So no cardiac etiology for the patient's abdominal pain. Patient does have chest pain that occurs almost nightly when he lies on his right side and it is is a very focal area on the left side of his chest. Does not experience it otherwise. In regards the patient's abdominal pain is unclear the patient had a transient small bowel obstruction. CAT scan here was negative. Reassurance is provided to the patient and his daughters present at bedside. Patient will be discharged home. Patient is also having left leg pain which is been present since the end of June. Patient does have an MRI of his back as outpatient. [] Discharge Diet: No Restrictions Discharge Activity: Return to Normal Activity Call your doctor if you observe: Chest pain, - - worsening abdominal pain. bowel or bladder incontinence. Home Medications: Medications to take at Discharge [place]-3 Acid Ethyl Esters [Lovaza] 1 capsule PO BID 02/21/16 Rosuvastatin Calcium [Crestor] 20 mg PO QHS 02/21/16 Aspirin [Aspirin, Baby] 81 mg PO QHS 09/07/17 Gabapentin [Neurontin] 100 mg PO TID 09/07/17 Hydrocodone Bitart/Apap 5-325 [[place] 5/325] 1 tablet PO Q4H PRN PRN 09/07/17 Primary Care Physician: Seth Tobar [Primary Care Provider] - Within 2 Weeks Patient Instructions: ED Chest Pain NonCardiac Disposition: Home Minutes spent on discharge:: 25 Patient Condition:: Good Meaningful Use Info Meaningful Use Diagnoses (Choose all that apply): None applicable Code Visit OBSV E&M: 53539 Observation care discharge
== END 2017-09-08 11:26 | disposition home or self-care (01) ==
LOC: ED 13:08 → PCU 13:59
PROVIDERS: Emergency Provider Emergency Medicine
DX: R07.89 Other chest pain (principal); E78.5 Hyperlipidemia, unspecified; M79.605 Pain in left leg; R10.13 Epigastric pain; R06.02 Shortness of breath; Z79.899 Other long term (current) drug therapy; Z79.82 Long term (current) use of aspirin; Z87.891 Personal history of nicotine dependence
CPT/HCPCS: 36415; 71045; 74176; 78452; 80048; 81001; 83690; 84484; 85025; 85610; 85730; 93005; 93017; 96360; 96361; 99218; 99285; A9500; J7030; A4216; G0378; J2785

== ENCOUNTER 2017-10-16 10:00 | Outpatient (RCR) | payer MEDICARE, BC, SELFPAY ==
--- NOTE | 2017-09-22 10:44 | HP.PTEVAL ---
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 Date of Evaluation: 09/22/17 Physical Therapist: Christina Rangel Cross - Visit Plan Frequency: 2-3x /Week Duration: 4-6 Weeks Plan: FURTHER ASSESSMENT OF APPROPRIATE JESSICA EX'S AFTER FIRST INJECTION MONDAY. POSTURE CORRECTION/STRENGTHENING, INSTRUCTION IN APPROPRIATE BODY MECHANICS AND ACTIVITY MODIFICATIONS. DLS STARTING WITH A NEUTRAL SPINE PROGRESSING ROM TOLERATED. NICOLA LE ROM, STRETCHING AND STRENGTHENING. HEP INSTRUCTION. NO GRASTON, NO KINESIO TAPE AND NO DRY NEEDLING. 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 NOT ABLE TO WORK AFTER [employer] UNTIL ABOUT A WEEK AGO WHEN HE STARTED TO EASE BACK IN. 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 Disability: NO. Present symptoms: LEFT LOW BACK, LEFT HIP, L KNEE AND WHITE PAIN. INTERMITTENT LLE NUMBNESS AND TINGLING. NO LEFT FOOT SX'S. Present since: SOMETIME IN JUNE. Pain Scale: WORST 10/10, LEAST 0/10. Currently: 0/10 SITTING IN CLINIC BUT 1/10 WALKING IN TODAY. Commenced as a result of: NO APPARENT REASON OTHER THAN ON HANDS AND KNEES ON THE FLOOR WITH 3 YEAR OLD GRANDSON ON HIS BACK. Symptoms at onset: LOW BACK. Worse: STANDING, WALKING, LYING DOWN IN BED, WORK, GETTING IN/OUT OF CAR A LITTLE BIT, TRYING TO AVOID LIFTING BECAUSE AFRAID IT WILL STIR IT UP. Better: SITTING, TENS. Disturbed sleep: YES. Previous history/Previous treatment: YEARS AGO SOME LOW BACK ADJUSTMENTS BY [facility] WHEN IN FOR HIS NECK BUT DENIES ANY OTHER SIGNIFICANT HISTORY OF LOW BACK PROBLEMS. NO LOW BACK SURGERY. NO KIARA'S. KIARA SCHEDULED FOR MONDAY WITH [facility]. Coughing/sneezing/straining: NEGATIVE. Gait: INDEP GAIT SHORT DISTANCES ONLY. YESTERDAY DIDN'T HAVE NEUROTIN AND COULD ONLY WALK ABOUT 10 MIN BEFORE NEEDING TO SIT DOWN. LATER ABLE TO WALK ABOUT 15 MIN. ABLE TO STAND FOR 30 MIN TO GIVE A HAIR CUT YESTERDAY, RESTED AND DID ANOTHER 30 MIN. Difficulty initiating urinatin: NO. Accidents: NO. Unexplained weight loss: NO. Imaging: [facility] LEFT HIP, PELVIC AND KNEE X-RAYS SHOWING DEGENERATIVE CHANGES. CHIROPRACTIC LUMBAR X-RAYS - PATIENT REPORTS CHIROPRACTOR SAID HE HAS ARTHRITIS AND BULGING DISC. MRI RECENTLY SHOWING L3 LEFT HERNIATED DISC. SOME STENOSIS. PMH: UNREMARKABLE. DOES HAVE SLEEP APNEA. Recent major surgery: HEART ABLATION 6-8 YEARS AGO. HISTORY GIVEN AT LAST PT EVAL IN JUL 2017: [facility] VISITS AND PATIENT DOESN'T THINK HE IS GETTING ANYWHERE. ONE VISIT AT PT AT [facility] AND IT DIDN'T HELP AND HE WAS SKEPTICAL ABOUT WHAT THEY HAD PLANNED HELPING SO HE DIDN'T GO BACK. TWO VISITS WITH DR. MARIO. ALSO WENT TO ED. PATIENT REPORTS HE WAS GOING TO STAY WITH THE [facility]IROPRA[facility] BUT AFTER HAVING A BAD EXPERIENCE MONDAY (YESTERDAY) THE PAIN GOT BAD AGAIN BUT NOT BAD MONDAY. HE DECIDED RECENTLY TO TRY PT AGAIN. ALSO TRIED SOME INJECTIONS OF SOME SORT AT [facility] FOR 2 WEEKS BUT DIDN'T HELP. OTHER: DECIDED TO QUIT TAKING [facility] AND TOLD DR. ROMERO. HE ALSO TRIED STOPPING NEUROTIN FOR A DAY A TEST BUT IT CAUGHT UP WITH HIM AND HE TOOK IT AFTER LEAVING THE DOCTOR ABOUT 2 PM. AT THIS POINT, HE FEELS LIKE HE IS BETTER THAN HE WAS BEFORE STARTING PT THE LAST TIME. PATIENT REPORTS DR. ROMERO TOLD HIM THAT HE THINKS IF HE GETS THE KIARA AND DOES JESSICA EX'S HE WILL BE FINE. - Objective Sitting Posture: POOR. Standing Posture: POOR. Lordosis: REDUCED. Lateral shift: NO. Relevant shift: N/A. Active Correction of posture: NE. Other Observations: INDEP SLOW GAIT INTO PT WITHOUT AD. STATES TODAY IS A PRETTY GOOD DAY SO FAR. Motor deficit: NO EXCEPT HIPS 4/5 AND NO INCREASED PAIN WITH TESTING. Sensory deficit: NO. ROM deficit: TIGHT NICOLA HIP FLEXORS, HS'S AND GASTROC SOLEUS COMPLEX'S. Reflexes: 2/2 NICOLA LE'S. Dural Signs: NEGATIVE NICOLA LE'S. Lumbar mvmt loss: flex - NIL. ext - INEZ. R SG - INEZ. L SG - INEZ. LEFT SG TESTING PROVOKED A LITTLE BIT OF LLE TINGLING. Core strength: FAIR. Palpation: NO TENDERNESS. - Goals Goal 1:: DECREASE C/O BACK AND LE SX'S. Goal Time Frame: 4-6 Weeks Goal 2:: IMPROVE LIFTING, *WALKING*, SITTING, STANDING, SLEEP, SOCIAL LIFE, TRAVEL AND EMPLOYMENT/HOMEMAKING FUNCTION. [ End ] Goal Time Frame: 4-6 Weeks Goal 3:: INSTRUCT IN PROPHYLAXIS Goal Time Frame: 4-6 Weeks - Rehabilitation Potential Rehabilitation Potential: Fair - Anticipated Interventions Patient/Client Instruction: Educate patient on: Condition, Plan of Care, Risk Factors, Benefits of Fitness Program For the Purpose of:: To improve self management Therapeutic Exercise to Include: Strength training, Body mechanics, Postural training, Flexibilty training, Dynamic Lumbar Stabilization, Jessica Exercises For the Purpose of:: To improve ability of physical actions for home/community/work/leisure Thank you for the opportunity to evaluate your patient. For Medicare and Medicare HMO plans, please review the plan of care and approve it. It will need to be FAXED BACK to us at [phone] for Medicare purposes. Please let me know if there are questions or concerns regarding this plan of care. Physician Signature: Date:
--- NOTE | 2017-10-16 11:08 | HP.PTDCSUM_ITS ---
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 Discharge Date: 10/16/17 Please see the following information for a summary of their discharge status. - Subjective Subjective: PATIENT STATES I'M GOOD TO GO PATIENT REPORTS HE HAS NOT BEEN HAVING ANY PAIN BUT HE DOES STILL GET A LITTLE BIT OF TINGLING IN HIS LEFT WHITE THAT LASTS FOR A FEW SECONDS IN THE MORNING THEN USUALLY DOESN'T RE-OCCUR. 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 - Overall Improvement % Improvement: 100 - Objective Objective/Function: ALL GOALS MET. INDEP GAIT INTO PT WITH NO GROSS DEVIATIONS NOTED. AMBULATION IS AT A BRISK PACE. Motor deficit: NO - NICOLA LE'S 5/5 WITH MMT'ING AND PATIENT DENIED PAIN WITH TESTING. Sensory deficit: NO. ROM deficit: MILD DECREASED UE AND LE ROM IN HIPS AND SHOULDERS AND NO C/O OF INCREASED PAIN WITH TESTING TODAY. Reflexes: 2/2 NICOLA LE'S. Dural Signs: NEGATIVE NICOLA LE'S. Lumbar mvmt loss: flex - NIL. ext - MOD. R SG - MOD. L SG - MOD. NO C/O SX'S WITH LUMBAR ROM TESTING TODAY. PATIENT SEEMED TO HAVE A GOOD UNDERSTANDING OF ALL INSTRUCTIONS AFTER GIVEN TODAY AND APPEARED MORE OPEN TO CONTINUEING THE EX'S. Core strength: GOOD. - Goals Goal 1:: DECREASE C/O BACK AND LE SX'S. Goal Progress: Goal Met Goal 2:: IMPROVE LIFTING, *WALKING*, SITTING, STANDING, SLEEP, SOCIAL LIFE, TRAVEL AND EMPLOYMENT/HOMEMAKING FUNCTION. [ End ] Goal Progress: Goal Met Goal 3:: INSTRUCT IN PROPHYLAXIS Goal Progress: Goal Met - Plan Plan: D/C. PATIENT IS AGREEABLE TO DISCHARGE AND IS GOING TO CONSIDER A MEMBERSHIP HERE AT [employer]. - D/C Information If there are questions or concerns regarding this patient's physical therapy, please feel free to call me at [phone]. Thank you for the referral of this patient. Sincerely, Christina Street
== END 2017-10-16 19:00 | disposition home or self-care (01) ==
LOC: PT 10:00
PROVIDERS: Visit Provider Orthopaedic Surgery Orthopaedic Surgery of the Spine
DX: M51.16 Intervertebral disc disorders with radiculopathy, lumbar region (principal)
CPT/HCPCS: 97110; 97162; 97530

== ENCOUNTER → 2019-01-15 10:43 | Outpatient (CLI) | payer MEDICARE, BC, OTHER, SELFPAY ==
--- NOTE | 2019-01-15 11:00 | RAD_ITS ---
STUDY: X-RAY - ORBITS REASON FOR EXAM: Male, 73 years old. This study is being performed as a clearance examination for exclusion of orbital metal, prior to the performance of an MRI examination. TECHNIQUE: 2 view(s) of the orbits were obtained. COMPARISON: None. FINDINGS: Normal bilateral orbits without a metallic orbital foreign body. Normal visualized facial bones. Normal paranasal sinuses. The soft tissue structures are unremarkable. RAD/Orbits for Foreign Body IMPRESSION: No demonstrated metallic orbital foreign body. The patient is cleared for an MRI examination. Electronically Signed: Asaf Finney, at 11:20 EDT , Service support ,
--- NOTE | 2019-01-15 11:30 | MRI_ITS ---
STUDY: MRI RIGHT MIDFOOT REASON FOR EXAM: Male, 73 years old. Right forefoot pain at the level of second MTP joint. TECHNIQUE: Standardized fat and water weighted pulse sequences were obtained in all 3 orthogonal planes. COMPARISON: None. FINDINGS: Normal talonavicular articulation. Normal calcaneocuboid articulation. Normal navicular-cuneiform articulations. Normal intercuneiform articulations. Normal first tarsometatarsal articulation. Normal Lisfranc ligament. Normal second and third tarsometatarsal articulations. Normal cuboid fourth and cuboid fifth tarsometatarsal articulation. Osteoarthritic changes of the first through fifth MTP and IP joints, most marked at the first MTP joint (sagittal series 7 images 2-27). Normal tibialis anterior tendon. Normal extensor hallucis longus tendon. Normal extensor digitorum longus tendons. Normal peroneus longus tendon and distal insertion. Normal peroneus brevis tendon and distal insertion. Normal intrinsic muscles of the mid and forefoot region. Normal extensor digitorum brevis muscle. Extensive subcutaneous soft tissue edema at the level of the metatarsal heads (sagittal series 7 images 11-22). MRI/Lower Ext/No Jt/w/o IMPRESSION: Extensive subcutaneous edema at the level of the metatarsal heads. Osteoarthritic changes of the first through fifth MTP and IP joints, most marked at the first MTP joint. No other abnormality. Electronically Signed: Randolph Enciso MD at 17:30 EDT , Service support ,
== END ==
PROVIDERS: Family Provider Family Medicine; PCP Family Medicine; Referring Provider Podiatrist; Visit Provider Podiatrist
DX: M77.40 Metatarsalgia, unspecified foot (principal); Z87.821 Personal history of retained foreign body fully removed
CPT/HCPCS: 70030; 73718

== ENCOUNTER → 2019-01-22 13:33 | Outpatient (CLI) | payer MEDICARE, BC, OTHER, SELFPAY ==
[2019-01-22 15:26] LABS: CRP < 2.90 mg/L (0.0-3.0); Rheumatoid Factor < 10.0 IU/mL (<15); Uric Acid 5.4 mg/dL (3.5-7.2)
[2019-01-22 15:27] LABS: Erythrocyte Sedimentation Rate 10 mm/hr (0-20)
[2019-01-28 12:50] LABS: ANTINUCLEAR ANTIBODIES DIRECT Negative (Negative)
[2019-01-31 11:38] LABS: HLA B27 Positive (.)
== END ==
PROVIDERS: Family Provider Family Medicine; PCP Family Medicine; Referring Provider Podiatrist; Visit Provider Podiatrist
DX: M19.071 Primary osteoarthritis, right ankle and foot (principal)
CPT/HCPCS: 36415; 81374; 84550; 85652; 86038; 86140; 86431

== ENCOUNTER → 2020-02-14 08:36 | Outpatient (CLI) | payer MEDICARE, BC, OTHER, SELFPAY ==
[2020-02-06 10:18] VITALS: BMI 37.4
[2020-02-14 10:00] LABS: Anion Gap 5 (5-15); BUN 20 mg/dL (7-18); BUN/Creat Ratio 20.4 RATIO (10-20); Calcium,Total 8.9 mg/dL (8.5-10.1); Chloride 101 mmol/L (98-107); Creatinine, Serum 0.98 mg/dL (0.70-1.30); EST Glomerular Filtration Rate 80 mL/min (>60); Est Glom Filt Rate - Afr Amer 96 mL/min (>60); Glucose 231 mg/dL (74-106); Sodium Level 133 mmol/L (136-145); T4 Total, Thyroxin 10.5 ug/dL (4.5-12.1); Thyroid Stim Hormone (TSH) 1.88 uIU/mL (0.358-3.74)
[2020-02-17 17:35] LABS: Vitamin D 1,25-Dihydroxy 41.6 pg/mL (19.9-79.3)
== END ==
PROVIDERS: PCP Family Medicine; Referring Provider Internal Medicine Cardiovascular Disease; Visit Provider Internal Medicine Cardiovascular Disease
DX: R07.9 Chest pain, unspecified (principal); I47.1 Supraventricular tachycardia; R06.00 Dyspnea, unspecified; I10 Essential (primary) hypertension; E78.5 Hyperlipidemia, unspecified; Z98.890 Other specified postprocedural states
CPT/HCPCS: 36415; 80048; 82652; 84436; 84443

== ENCOUNTER → 2020-02-21 07:01 | Outpatient (CLI) | payer MEDICARE, BC, SELFPAY ==
[2020-02-06 10:18] VITALS: BMI 37.4
--- NOTE | 2020-02-21 07:02 | ECHOCS_ITS ---
Reason For Study: CHEST PAIN Procedure This was a 2D Doppler, Color Flow transthoracic echocardiogram. The study was technically difficult. Contrast injection was performed. Exam performed in department. Left Ventricle Normal LV size. Left ventricular systolic function is normal. The estimated ejection fraction is 55 %. No regional wall motion abnormalities noted. Right Ventricle Normal RV size. Normal systolic function. Atria The left atrium is mildly enlarged. Normal right atrium. No doppler evidence for ASD. Mitral Valve There is no mitral annular calcification. Mild diffuse mitral valve thickening. Trivial mitral valve insufficiency. Tricuspid Valve Normal tricuspid valve. Trivial tricuspid valve insufficiency. Right ventricular systolic pressure estimated to be 22 mmHg. Aortic Valve Trisinus/trileaflet aortic valve. Normal aortic valve. Pulmonic Valve The pulmonic valve is not well visualized. Trivial pulmonic valve insufficiency. Great Vessels Mildly dilated aortic root. Pericardium/Pleural No pericardial effusion. Medication 22 gauge I.V. with prn adaptor inserted into right arm. Diluted definity 2.0ml given slow IV push to enhance endocardial definition. MMode/2D Measurements & Calculations LVIDd: 4.7 cm IVSd: 1.1 cm Ao root diam: 4.0 cm LVIDs: 2.9 cm LVPWd: 1.1 cm RVDd: 3.8 cm FS: 38.9 % LAV(MOD-bp): 89.6 ml LVAd ap4: 31.1 cm2 SV(MOD-sp4): 52.6 ml LAV(MOD-bp) Indexed: 41.3 ml/m2 EDV(MOD-sp4): 106.5 ml LAV(MOD-sp2): 66.1 ml EDV(sp4-el): 110.0 ml LAV(MOD-sp4): 94.8 ml LVAs ap4: 21.2 cm2 ESV(MOD-sp4): 53.9 ml ESV(sp4-el): 58.1 ml EF(MOD-sp4): 49.4 % EF(sp4-el): 47.2 % SV(sp4-el): 51.9 ml LA A4 area: 28.8 cm2 LA dimension(2D): 4.3 cm RA A4 area: 18.6 cm2 Time Measurements MV dec time: 0.21 sec Doppler Measurements & Calculations MV E max mamadou: 76.1 cm/sec Lat Peak E' Mamadou: 12.4 cm/sec Med Peak E' Mamadou: 5.7 cm/sec MV A max mamadou: 55.1 cm/sec E/E' lat: 6.1 E/E' med: 13.4 MV E/A: 1.4 Ao V2 max: 127.8 cm/sec LV V1 max: 125.1 cm/sec PA V2 max: 95.2 cm/sec Ao max P.5 mmHg LV V1 max P.3 mmHg PI end-d mamadou: 105.2 cm/sec TR max mamadou: 216.5 cm/sec TR max P.3 mmHg Interpretation Summary The study was technically difficult. Contrast injection was performed. Left ventricular systolic function is normal. The estimated ejection fraction is 55 %. The left atrium is mildly enlarged. Mild diffuse mitral valve thickening. Trivial mitral valve insufficiency. Trivial tricuspid valve insufficiency. Trivial pulmonic valve insufficiency. Mildly dilated aortic root. Right ventricular systolic pressure estimated to be 22 mmHg. Transmitral diastolic flow velocities suggest diastolic dysfunction (pseudonormal pattern). Ordering Physician: Jose Manriquez Referring Physician: KAYLA CORADO Performed By: Steffanie Valenzuela, RDCS, RVT
--- NOTE | 2020-02-21 09:21 | STRESSREP ---
Stress Test Report Date: Procedure: Exercise tolerance test/imaging study Indications: Chest pain; dyspnea on exertion: SVT status post EPS/RFA Consent: Per the patient Procedure: The patient exercised on a Armond protocol for 6 minutes and 30 seconds completing Stage II and 30 seconds of Stage III achieving a peak heart rate of 134 bpm (91 % predicted maximal heart rate) with a peak blood pressure 160/58 mmHg and a peak MET capacity of 7 METs. The baseline ECG demonstrated sinus bradycardia. The peak exercise ECG demonstrated Mattix/motion artifact with no obvious ECG changes. There was a rare PVC during recovery. The functional capacity was considered average. There was no complaint of chest discomfort during exercise or recovery. The examination was discontinued secondary to dyspnea. Impression: 1. Technically adequate (percent predicted maximal heart rate greater than 85%) exercise tolerance test 2. Peak exercise ECG somatic/motion artifact with no obvious ECG changes 3. There was a rare PVC during recovery 4. Nuclear images pending Myocardial perfusion imaging study: Technique: The patient was injected with 14.5 mCi of technetium 99m Cardiolite and subsequently rest SPECT Cardiolite nuclear imaging was obtained in the horizontal long, vertical long, and short axis views. The patient exercised on a Armond protocol for 6 minutes and 30 seconds completing Stage II and 30 seconds of Stage III achieving a peak heart rate of 134 bpm (91 % predicted maximal heart rate) with a peak blood pressure 160/58 mmHg and a peak MET capacity of 7 METs. The patient was injected with 44.8 mCi of technetium 99m Cardiolite and subsequently stress SPECT Cardiolite nuclear imaging was obtained in the horizontal long, vertical long, and short axis views. A gated Cardiolite study at peak stress was obtained. Interpretation: Rest and stress SPECT Cardiolite nuclear imaging status post realignment, normalization, and attenuation correction, demonstrates the appearance of relative uniform tracer uptake and myocardial perfusion appearing within normal limits. There is end systolic thickening and brightening. The gated Cardiolite study demonstrates myocardial thickening and inward wall motion. The reported LVEF is 65 %. Impression: 1. Rest and stress SPECT Cardiolite nuclear imaging demonstrate relative uniform tracer uptake and myocardial perfusion appearing within normal limits. 2. The gated Cardiolite study reports an LVEF of 65 %. This note was generated with Happ[employer] software. It may contain incorrect words, spelling, and punctuation that were not noted in checking the note before signing.
== END ==
PROVIDERS: PCP Family Medicine; Referring Provider Internal Medicine Cardiovascular Disease; Visit Provider Internal Medicine Cardiovascular Disease
DX: R07.9 Chest pain, unspecified (principal); I47.1 Supraventricular tachycardia; I10 Essential (primary) hypertension; E78.5 Hyperlipidemia, unspecified; R06.00 Dyspnea, unspecified; Z98.890 Other specified postprocedural states
CPT/HCPCS: 78452; 93017; 93306; A9500; Q9957; A4216; C8929

== ENCOUNTER → 2020-02-28 08:06 | Outpatient (CLI) | payer MEDICARE, BC, OTHER, SELFPAY ==
[2020-02-06 10:18] VITALS: BMI 37.4
[2020-02-28 09:07] LABS: Anion Gap 3 (5-15); BUN 19 mg/dL (7-18); BUN/Creat Ratio 21.1 RATIO (10-20); Calcium,Total 8.7 mg/dL (8.5-10.1); Chloride 107 mmol/L (98-107); EST Glomerular Filtration Rate 88 mL/min (>60); Est Glom Filt Rate - Afr Amer 106 mL/min (>60); Glucose 185 mg/dL (74-106); Sodium Level 137 mmol/L (136-145)
== END ==
PROVIDERS: PCP Family Medicine; Referring Provider Internal Medicine Cardiovascular Disease; Visit Provider Internal Medicine Cardiovascular Disease
DX: I10 Essential (primary) hypertension (principal)
CPT/HCPCS: 36415; 80048

== ENCOUNTER → 2023-10-03 | Outpatient (CLI) | payer MEDICARE, BC, SELFPAY ==
[2023-10-03 11:45] LABS: Absolute Lymphocyte Count 1.78 X10^3/uL (0.83-4.51); Basophil# 0.04 X10^3/uL; Basophil% 0.6 % (0-1); Eosinophils% 7.1 % (0-5); Hematocrit 42.9 % (40-54); Hemoglobin 14.1 g/dL (13.0-16.5); Lymphocyte # 1.78 X10^3/ul (0.83-4.51); Lymphocyte % 25.4 % (19-41); Mean Corp Hgb Conc 32.9 g/dL (32-36); Mean Corpuscular Hgb 30.8 pg (27.0-32.0); Mean Corpuscular Volume 93.7 fL (80-94); Mean Platelet Vol. 10.6 fl (6.2-12.0); Monocyte# 0.63 X10^3/uL; NRBC Flagged by Analyzer 0 % (0-5); Neutrophil # 4.03 X10^3/uL (2.7-7.7); Neutrophil % 57.6 % (47-70); Platelet Count 195 K/mm3 (150-450); RBC Distribution Width CV 12.7 % (11.6-14.6); RBC Distribution Width SD 43.6 fl (35.1-43.9); Red Blood Count 4.58 M/mm3 (4.6-6.2)
[2023-10-03 12:26] LABS: Microalbumin,Random Urine 7.1 mg/L (NO RANGE EST.)
[2023-10-03 12:38] LABS: PSA,Total- Diagnostic 4.91 ng/mL (0.0-4.0)
[2023-10-03 12:41] LABS: AST(SGOT) 22 U/L (15-37); Alanine Aminotransfer ALT/SGPT 28 U/L (16-61); Albumin, Serum 3.7 g/dL (3.2-5.0); Alkaline Phosphatase 33 U/L (45-117); Anion Gap 10 (5-15); BUN 13 mg/dL (7-18); BUN/Creat Ratio 14.7 RATIO (10-20); Calcium,Total 9.2 mg/dL (8.5-10.1); Chloride 104 mmol/L (98-107); Cholesterol 127 mg/dL (200); Creatinine, Serum 0.88 mg/dL (0.70-1.30); EST Glomerular Filtration Rate 89 mL/min (>60); Est Glom Filt Rate - Afr Amer 108 mL/min (>60); Globulin 3.6 g/dL (2.2-4.2); Glucose 150 mg/dL (74-106); High Density Lipoprotein 39 mg/dL; Potassium 4.4 mmol/L (3.5-5.1); Protein, Total 7.3 g/dL (6.4-8.2); Sodium Level 138 mmol/L (136-145); Triglycerides 196 mg/dL; Very Low Density Lipoprotein 39 mg/dL (5-40)
[2023-10-03 12:48] LABS: Vitamin D,25 Hydroxy 38.7 ng/mL
[2023-10-08 19:07] LABS: Testosterone, % Free 2.18 % (1.50-4.20); Testosterone, Free 10.22 ng/dL (5.00-21.00); Testosterone, Total 469 ng/dL (264-916)
== END | disposition home or self-care (01) ==
LOC: BIMLAB 08:10
PROVIDERS: Nurse Practitioner Family; PCP Internal Medicine; Visit Provider Internal Medicine
DX: E55.9 Vitamin D deficiency, unspecified (principal); E11.9 Type 2 diabetes mellitus without complications; N52.9 Male erectile dysfunction, unspecified; R35.0 Frequency of micturition; E78.5 Hyperlipidemia, unspecified; I47.10 Supraventricular tachycardia, unspecified; I10 Essential (primary) hypertension
CPT/HCPCS: 36415; 80053; 80061; 82043; 82306; 84153; 84402; 84403; 85025

== ENCOUNTER → 2023-11-13 | Outpatient (CLI) | payer MEDICARE, BC, SELFPAY ==
[2023-11-13 13:19] LABS: PSA,Total- Diagnostic 4.43 ng/mL (0.0-4.0)
== END | disposition home or self-care (01) ==
LOC: BIMLAB 11:38
PROVIDERS: PCP Internal Medicine; Referring Provider Internal Medicine; Visit Provider Internal Medicine
DX: R35.0 Frequency of micturition (principal)
CPT/HCPCS: 36415; 84153

== ENCOUNTER 2023-12-18 13:15 | Outpatient (RCR) | payer MEDICARE, BC, SELFPAY ==
--- NOTE | 2023-12-18 14:05 | HP.PTEVAL ---
Patient's Visit Information Visit Information Visit Information: ENOC CAMPBELL is a 78 year old M referred to Physical Therapy by GIANNI COHEN with a diagnosis of shoulder impingement. Date of Evaluation: 12/18/23 Physical Therapist: Hector Cutler, DPT, OCS, CSCS Visit Plan Plan: Pt did not want further treatment at therapy and wished to see chiropractor which he has in the past. He does not want to be on the schedule and will have Dr. Borjas send him back if needed. D/C at patient request Subjective Subjective: Neck and Right shoulder pain starting in October. Not sure why. Had some history in the neck. Went to [facility] walk in and got steroid pack which did not help. Did not come to therapy right away. Did some exercises on own but did not help. Pain is not improving. Today pain is 8/10. Walking and sitting make it worse. Overall intermittent. Was fine this morning. Hurts to get ears cleaned supine this am. Sleep is interrtuped some days due to pain. Not employed. Spends day not doing much as recently. mowing grass does not make him worse. No regualr exercises. Basic ADLs are going OK but painful. Pain R shoulder: Pain Intensity (Out of 10): 8 Pain Intensity Range: 0 and 8 Comment: intermittent Objective Objective: baseline 8/10 neck repeated protrusion NE repeated retraction PDM, , better ROM ext repeated ret/extension PDM, increase ext to 50 degrees and rotation to 50. still painful, overall pain diminished to 7/10. cervical AROM ext 25 pain r neck, flexion full, SB 5 B and pain R neck, rotation 45 R and 48 L with pain R. Tightness palpable R neck but no specific tenderness. reflexes 2/3 bi and tri sensation UE WNL to gross light otuc in B UE. strength is 4/5 in UE without myotomal or pain in shoulder. - HK, - neer, - ext rotation lag test + c/s compressionR. Full UE AROM without pain Balance/Special Test Scores Oswestry Neck Score: 20 Rehabilitation Potential Physical Therapy Diagnosis: symptoms more consistent with neck pain and derangement. Anticipated Interventions Text: Thank you for the opportunity to evaluate your patient. For Medicare and Medicare HMO plans, please review the plan of care and approve it. It will need to be FAXED BACK to us at [phone] for Medicare purposes. For Medicare only, by signing this I certify the plan of care. Please let me know if there are questions or concerns regarding this plan of care. Physician Signature: Date:
== END 2023-12-18 14:50 | disposition home or self-care (01) ==
LOC: PT 13:15
PROVIDERS: PCP Internal Medicine
DX: M75.41 Impingement syndrome of right shoulder (principal)
CPT/HCPCS: 97161

== ENCOUNTER → 2024-03-20 | Outpatient (CLI) | payer MEDICARE, BC, SELFPAY ==
[2024-03-20 12:47] LABS: AST(SGOT) 12 U/L (15-37); Alanine Aminotransfer ALT/SGPT 23 U/L (16-61); Albumin, Serum 3.5 g/dL (3.2-5.0); Alkaline Phosphatase 32 U/L (45-117); Bilirubin, Direct 0.14 mg/dL (0.00-0.30); Cholesterol 144 mg/dL (200); Globulin 3.4 g/dL (2.2-4.2); High Density Lipoprotein 41 mg/dL; Protein, Total 6.9 g/dL (6.4-8.2); Triglycerides 208 mg/dL; Very Low Density Lipoprotein 42 mg/dL (5-40)
== END | disposition home or self-care (01) ==
LOC: BIMLAB 09:14
PROVIDERS: Nurse Practitioner Family; PCP Internal Medicine; Visit Provider Internal Medicine
DX: E78.00 Pure hypercholesterolemia, unspecified (principal)
CPT/HCPCS: 36415; 80061; 80076

== ENCOUNTER → 2024-05-02 | Outpatient (CLI) | payer MEDICARE, BC, SELFPAY ==
[2024-05-02 12:48] LABS: PSA,Total- Diagnostic 5.22 ng/mL (0.0-4.0)
== END | disposition home or self-care (01) ==
LOC: BIMLAB 09:17
PROVIDERS: PCP Internal Medicine; Referring Provider Urology; Visit Provider Urology
DX: N40.1 Benign prostatic hyperplasia with lower urinary tract symptoms (principal)
CPT/HCPCS: 36415; 84153

== ENCOUNTER → 2024-09-12 | Outpatient (CLI) | payer MEDICARE, BC, SELFPAY ==
[2024-09-12 12:27] LABS: Absolute Lymphocyte Count 1.17 X10^3/uL (0.83-4.51); Absolute Neutrophil Count 4.9 X10^3/uL (2.0-7.7); Basophil# 0.02 X10^3/uL; Basophil% 0.3 % (0-1); Eosinophil# 0.42 X10^3/uL; Eosinophils% 5.8 % (0-5); Hematocrit 42.9 % (40-54); Lymphocyte # 1.17 X10^3/ul (0.83-4.51); Lymphocyte % 16.3 % (19-41); Mean Corp Hgb Conc 32.6 g/dL (32-36); Mean Corpuscular Hgb 30.6 pg (27.0-32.0); Mean Corpuscular Volume 93.9 fL (80-94); Mean Platelet Vol. 10.3 fl (6.2-12.0); Monocyte# 0.67 X10^3/uL; Monocyte% 9.3 % (0-10); NRBC Flagged by Analyzer 0 % (0-5); Neutrophil # 4.88 X10^3/uL (2.7-7.7); Neutrophil % 67.7 % (47-70); Platelet Count 193 K/mm3 (150-450); RBC Distribution Width CV 12.7 % (11.6-14.6); RBC Distribution Width SD 43.4 fl (35.1-43.9); Red Blood Count 4.57 M/mm3 (4.6-6.2); White Blood Count 7.2 K/mm3 (4.4-11.0)
[2024-09-12 13:53] LABS: Anion Gap 9 (5-15); BUN 15 mg/dL (4-19); BUN/Creat Ratio 18.2 RATIO (10-20); Calcium 9.6 mg/dL (7.6-11.0); Carbon Dioxide 23.9 mmol/L (22.0-29.0); Chloride 105 mmol/L (96-108); Creatinine, Serum 0.8 mg/dL (0.8-1.3); EST Glomerular Filtration Rate 91 (>60); Glucose 127 mg/dL (70-99); Potassium 4.3 mmol/L (3.3-5.1); Sodium Level 137 mmol/L (133-145)
[2024-09-12 13:54] LABS: AST(SGOT) 17 U/L (<=37); Alanine Aminotransfer ALT/SGPT 20 U/L (<=46); Alkaline Phosphatase 44 U/L (40-129); Bilirubin, Direct 0.25 mg/dL (0.00-0.30); Globulin 2.6 g/dL (2.2-4.2); Protein, Total 6.6 g/dL (5.9-8.4); Total Bilirubin 0.65 mg/dL (0.00-1.30)
[2024-09-12 14:24] LABS: Cholesterol 196 mg/dL (<=200); High Density Lipoprotein 32 mg/dL; Low Density Lipoprotein Calc. 126 mg/dL; Triglycerides 192 mg/dL; Very Low Density Lipoprotein 38 mg/dL (5-40); cholesterol:hdl ratio screen 6.16
== END | disposition home or self-care (01) ==
LOC: BIMLAB 09:25
PROVIDERS: Nurse Practitioner Family; PCP Internal Medicine; Referring Provider Internal Medicine; Visit Provider Internal Medicine
DX: E11.9 Type 2 diabetes mellitus without complications (principal); E78.00 Pure hypercholesterolemia, unspecified
CPT/HCPCS: 36415; 80048; 80061; 80076; 85025

== ENCOUNTER → 2025-01-28 | Outpatient (CLI) | payer MEDICARE, BC, SELFPAY | END | disposition home or self-care (01) | LOC: LAB 09:23 | PROVIDERS: PCP Internal Medicine; Referring Provider Internal Medicine; Visit Provider Internal Medicine | DX: E11.9 Type 2 diabetes mellitus without complications (principal) | CPT/HCPCS: 36415; 83036 ==

== ENCOUNTER → 2025-04-29 | Outpatient (CLI) | payer MEDICARE, BC, SELFPAY ==
[2025-04-29 16:00] LABS: Creatinine, Urine (random) 92.40 mg/dL (39.00-259.00); Microalbumin,Random Urine < 12.0 mg/L (<20 mg/L)
[2025-04-29 16:08] LABS: AST(SGOT) 20 U/L (<=37); Alanine Aminotransfer ALT/SGPT 17 U/L (<=46); Albumin, Serum 4.0 g/dL (3.4-4.8); Alkaline Phosphatase 41 U/L (40-129); Anion Gap 9 (5-15); BUN 13 mg/dL (4-19); BUN/Creat Ratio 14.8 RATIO (10-20); Calcium,Total 9.5 mg/dL (7.6-11.0); Carbon Dioxide 25.8 mmol/L (21.0-32.0); Chloride 104 mmol/L (98-108); Cholesterol 132 mg/dL (<=200); Globulin 2.9 g/dL (2.2-4.2); Glucose 110 mg/dL (70-99); Low Density Lipoprotein Calc. 73 mg/dL; PSA,Total- Diagnostic 4.56 ng/mL (0.00-4.00); Potassium 4.4 mmol/L (3.3-5.1); Triglycerides 124 mg/dL; Very Low Density Lipoprotein 25 mg/dL (5-40); cholesterol:hdl ratio screen 3.91
== END | disposition home or self-care (01) ==
LOC: MTLAB 11:49
PROVIDERS: PCP Internal Medicine; Referring Provider Internal Medicine; Visit Provider Internal Medicine
DX: E11.9 Type 2 diabetes mellitus without complications (principal); R35.0 Frequency of micturition
CPT/HCPCS: 36415; 80053; 80061; 82043; 82570; 84153